=== PATIENT | male | born 2000 | race Caucasian/White ===

== ENCOUNTER 2021-01-11 07:53 | Emergency (ER) | payer MEDICAID, OTHER ==
[2021-01-11 07:58] VITALS: BP 145/88
--- NOTE | 2021-01-11 08:08 | ED Upper Extremity ---
General Chief Complaint: Upper Extremity Stated Complaint: RIGHT ARM INJ History of Present Illness Date Seen by Provider: Jan 11, 2021 Time Seen by Provider: 08:08 Initial Comments 20-year-old male presents with pain in his right forearm. The pain is just distal to the elbow. He has pain with movement. Complains of some mild tingling. Reports that it hurts to open and close his hand. Patient reports that he fell 2 days ago and abdomen the pain started. When he fell he had and landed on the side of his arm. There is no obvious deformity or swelling. He reports no other injuries. Allergies and Home Medications Patient Home Medication List Home Medication List Reviewed: Yes Review of Systems Constitutional: no symptoms reported EENTM: no symptoms reported Respiratory: no symptoms reported Gastrointestinal: no symptoms reported Genitourinary: no symptoms reported Musculoskeletal: see HPI Skin: see HPI Psychiatric/Neurological: See HPI Past Axvmpiw-Yoxikz-Tyvdle Hx Past Med/Social Hx: Reviewed Nursing Past Med/Soc Hx Patient Social History Alcohol Use: Denies Use Smoking Status: Current Everyday Smoker 2nd Hand Smoke Exposure: No Recent Hopitalizations: No Seasonal Allergies Seasonal Allergies: No Past Medical History Surgeries: Yes (cyst removed from liver) Respiratory: No Cardiac: No Neurological: No Genitourinary: No Gastrointestinal: No Musculoskeletal: Yes (broken foot ) Endocrine: No HEENT: No Cancer: No Psychosocial: No Integumentary: No Blood Disorders: No Physical Exam Vital Signs Capillary Refill : Height, Weight, BMI Height: '" Weight: lbs. oz. kg; BMI Method: General Appearance: WD/WN, no apparent distress Neck: full range of motion, supple Cardiovascular: normal peripheral pulses, regular rate, rhythm Respiratory: lungs clear, normal breath sounds Gastrointestinal: non tender, soft Shoulder: normal inspection Elbow/Forearm: no evidence of injury, normal ROM, Right, soft tissue tenderness Wrist: Yes normal inspection Hand: normal inspection Neurologic/Tendon: normal sensation, normal tendon functions Neurologic/Psychiatric: alert, normal mood/affect, oriented x 3 Skin: normal color, warm/dry Progress/Results/Core Measures Results/Orders My Orders Orders - MANSOOR SLADE DO Forearm 2 View Right (01/11/21 08:02) Progress Progress Note : Progress Note Patient with likely right forearm contusion, no obvious fracture injury on x- ray. Patient with full range of motion. Patient stable discharged Diagnostic Imaging Diagonstic Imaging: Xray Plain Films/CT/US/NM/MRI: forearm Comments No acute fracture Reviewed: Reviewed by Me, Reviewed/Discussed Departure Impression Primary Impression: Contusion of right forearm, initial encounter Disposition: 01 HOME, SELF-CARE Condition: Stable Departure-Patient Inst. Referrals: NO,LOCAL PHYSICIAN (PCP/Family) Primary Care Physician Patient Instructions: Contusion (DC) Add. Discharge Instructions: Ice to affected area Tylenol or ibuprofen as needed every 8 hours for pain 4% topical lidocaine with menthol as directed on package All discharge instructions reviewed with patient and/or family. Voiced understanding. MANSOOR SLADE DO Jan 11, 2021 08:08
--- NOTE | 2021-01-11 08:33 | Diagnostic Imaging Report ---
History: Fall with pain and tingling in the right forearm TECHNIQUE: 2 views of the right forearm COMPARISON: None FINDINGS: No acute fracture or dislocation is seen in the right forearm. Alignment is normal. Joint spaces are preserved. There is no right elbow joint effusion. IMPRESSION: 1. No acute osseous abnormality is seen in the right forearm. Dictated by: Dictated on workstation # [id number]
== END 2021-01-11 08:19 | disposition home or self-care (01) ==
LOC: ER FS 07:56
DX: S50.11XA Contusion of right forearm, initial encounter (principal); F17.200 Nicotine dependence, unspecified, uncomplicated; W19.XXXA Unspecified fall, initial encounter
CPT/HCPCS: 73090

== ENCOUNTER 2021-01-17 01:22 | Emergency (ER) | payer MEDICAID ==
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
[2021-01-17 01:54] VITALS: BP 132/65
--- NOTE | 2021-01-17 08:08 | Diagnostic Imaging Report ---
Indication: Left foot injury. Time of exam:1:41 AM 3 views of the left foot were obtained. The metatarsals are intact. Phalanges are intact. Midfoot and hindfoot are unremarkable. No fractures are seen. Impression: No acute bony abnormality is detected. Dictated by: Dictated on workstation # [id number]
== END 2021-01-17 01:58 | disposition home or self-care (01) ==
LOC: EDUNIT# 01:22 → ER FS 01:25
DX: S90.32XA Contusion of left foot, initial encounter (principal); F17.200 Nicotine dependence, unspecified, uncomplicated; V48.2XXA Person on outside of car injured in noncollision transport accident in nontraffic accident, initial encounter
CPT/HCPCS: 73630